=== PATIENT | female | born 1945 | race Caucasian/White ===

== ENCOUNTER → 2017-07-17 | Outpatient (CLI) | payer OTHER | LOC: FIMAGING 13:52 | PROVIDERS: ATTEND Family Medicine | DX: Z12.31 Encounter for screening mammogram for malignant neoplasm of breast (principal) | CPT/HCPCS: G0202 ==

== ENCOUNTER 2017-12-15 18:19 | Inpatient (IN) | payer OTHER ==
--- NOTE | 2017-12-15 18:58 | EDPHY ---
H & P Time Seen by Provider: 12/15/17 18:57 HPI/ROS: Chief complaint. Fever, chills HPI. 72-year-old female chest cold for 2 weeks after returning from a cruise to the [facility]. She saw her PCP and was diagnosis a cold. She was getting better. Last night's however she has had fever and chills. Fever to 101.9 degrees this morning. Nonproductive cough. Chills but not really and he. Some discomfort in the right side of her abdomen which is had previously before she has been sick. No nausea vomiting or diarrhea. Decreased oral intake. No urinary symptoms other than she has urinary incontinence with cough. ROS Constitutional. Fever and chills Eyes. no problems with vision ENT. Congestion Cardiovascular. no chest pain Respiratory. Cough and maybe a little shortness of breath Abdominal. Right-sided abdominal pain without nausea vomiting diarrhea . no problems urinating MS. no calf pain/swelling, no neck/back pain, no joint pain Skin. no rash Lymph. no swollen glands Neuro. no headache, no dizziness, no difficulty walking or with speech Past Medical/Surgical History: Past medical history is significant for knee replacements Social History: , nonsmoker, no alcohol Smoking Status: Former smoker Physical Exam: General Appearance: Alert well-developed female moderate distress. Ill appearing. Temp 37.2 degrees, heart rate 117 Eyes: Pupils equal and round no pallor or injection. ENT, mucous membranes are dry Respiratory: There are no retractions, lungs are clear to auscultation. Cardiovascular: Regular rate and rhythm. Gastrointestinal: Mild right-sided abdominal pain without masses. Normal bowel sounds Neurological: Awake and alert, sensory and motor exams grossly normal. Skin: Warm and dry, no rashes. Musculoskeletal: Neck is supple nontender. Extremities symmetrical, full range of motion. Psychiatric: Patient is oriented X 3, there is no agitation. Constitutional: Initial Vital Signs Temperature (C) 37.2 C 12/15/17 18:32 Heart Rate 117 H 12/15/17 18:32 Respiratory Rate 20 12/15/17 18:32 Blood Pressure 185/80 H 12/15/17 18:32 O2 Sat (%) 95 12/15/17 18:32 O2 Delivery Mode Room Air Allergies/Adverse Reactions: No Known Allergies Allergy (Verified 12/15/17 18:31) Home Medications: Medication Instructions Recorded Calcium Carbonate/Vitamin D3 1 each PO BID 11/23/15 [CALCIUM 600 + VIT D TABLET] Multivitamins [Multivitamin (*)] 1 each PO DAILY 11/23/15 Medical Decision Making - Diagnostics Imaging Results: Imaging Impressions Chest X-Ray 12/15/17 19:09 Impression: Findings consistent with airways disease are noted. Superimposed interstitial prominence bilaterally could reflect viral pneumonia or possibly pneumonia related to an atypical organism. Clinical correlation and follow-up radiography recommended. Chest x-ray reviewed by me and discussed with Dr. Mendoza suspicious for pneumonia versus viral pneumonia. Procedures: IV normal saline with target of 2 L. Tylenol for fever. Septic workup. ED Course/Re-evaluation: 8:15 p.m. Severe sepsis declared now. Patient is given fluid bolus. She has been cultured. IV Rocephin. Negative influenza. Patient is given IV Rocephin following cultures. On re-evaluation patient is stable. She, her , and I discussed imaging and lab results. We discussed treatment plan including recommendation for admission. They expressed understanding and agreement I consulted and discussed the case with , hospitalist, who agrees to the admission Differential Diagnosis: I considered influenza, pneumonia. Patient is significantly dehydrated. She has an elevated lactate which may represent dehydration as opposed to sepsis. However we have declared severe sepsis as the patient has an abnormal chest x- ray and clinically could have pneumonia. - Data Points Laboratory Results: Laboratory Results 12/15/17 18:55 12/15/17 18:55 12/15/17 12/15/17 12/15/17 20:33 19:10 19:05 WBC RBC Hgb Hct MCV MCH MCHC RDW Plt Count MPV Neut % (Auto) Lymph % (Auto) Heard % (Auto) Eos % (Auto) Baso % (Auto) Nucleat RBC Rel Count Absolute Neuts (auto) Absolute Lymphs (auto) Absolute Monos (auto) Absolute Eos (auto) Absolute Basos (auto) Absolute Nucleated RBC Immature Gran % Immature Gran # PT INR APTT VBG Lactic Acid Pending 2.9 mmol/L H mmol/L (0.7-2.1) Sodium Potassium Chloride Carbon Dioxide Anion Gap BUN Creatinine Estimated GFR Glucose Calcium Total Bilirubin Nasal Influenza A PCR NEGATIVE FOR FLU A (NEGATIVE) Nasal Influenza B PCR NEGATIVE FOR FLU B (NEGATIVE) 12/15/17 12/15/1712/15/18 18:55 18:55 18:55 WBC 11.95 10^3/uL H 10^3/uL (3.80-9.50) RBC 4.63 10^6/uL 10^6/uL (4.18-5.33) Hgb 14.3 g/dL g/dL (12.6-16.3) Hct 41.7 % % (38.0-47.0) MCV 90.1 fL fL (81.5-99.8) MCH 30.9 pg pg (27.9-34.1) MCHC 34.3 g/dL g/dL (32.4-36.7) RDW 12.2 % % (11.5-15.2) Plt Count 180 10^3/uL 10^3/uL (150-400) MPV 9.5 fL fL (8.7-11.7) Neut % (Auto) 88.0 % H % (39.3-74.2) Lymph % (Auto) 8.3 % L % (15.0-45.0) Heard % (Auto) 2.7 % L % (4.5-13.0) Eos % (Auto) 0.2 % L % (0.6-7.6) Baso % (Auto) 0.3 % % (0.3-1.7) Nucleat RBC Rel Count 0.0 % % (0.0-0.2) Absolute Neuts (auto) 10.52 10^3/uL H 10^3/uL (1.70-6.50) Absolute Lymphs (auto) 0.99 10^3/uL L 10^3/uL (1.00-3.00) Absolute Monos (auto) 0.32 10^3/uL 10^3/uL (0.30-0.80) Absolute Eos (auto) 0.02 10^3/uL L 10^3/uL (0.03-0.40) Absolute Basos (auto) 0.04 10^3/uL 10^3/uL (0.02-0.10) Absolute Nucleated RBC 0.00 10^3/uL 10^3/uL (0-0.01) Immature Gran % 0.5 % % (0.0-1.1) Immature Gran # 0.06 10^3/uL 10^3/uL (0.00-0.10) PT 15.5 SEC H SEC (12.0-15.0) INR 1.21 H (0.83-1.16) APTT 33.8 SEC SEC (23.0-38.0) VBG Lactic Acid Sodium 134 mEq/L L mEq/L (135-145) Potassium 4.1 mEq/L mEq/L (3.5-5.2) Chloride 99 mEq/L mEq/L (97-110) Carbon Dioxide 19 mEq/l L mEq/l (22-31) Anion Gap 16 mEq/L mEq/L (8-16) BUN 14 mg/dL mg/dL (7-23) Creatinine 0.7 mg/dL mg/dL (0.6-1.0) Estimated GFR > 60 Glucose 268 mg/dL H mg/dL (70-100) Calcium 8.9 mg/dL mg/dL (8.5-10.4) Total Bilirubin 1.5 mg/dL H mg/dL (0.1-1.4) Nasal Influenza A PCR Nasal Influenza B PCR Medications Given: Ceftriaxone Sodium/Dextrose (Rocephin 1 Gm (Premix)) 50 mls @ 100 mls/hr IV EDNOW ONE PRN Reason: Protocol Stop: 12/15/17 20:44 Last Admin: 12/15/17 20:28 Dose: 50 mls Sodium Chloride (Ns) 2,200 mls @ 4,400 mls/hr 30 ml/kg infuse over 30 min ( 2200 ml) IV EDNOW ONE PRN Reason: Protocol Stop: 12/15/17 20:44 Last Admin: 12/15/17 20:29 Dose: 2,200 mls Discontinued Medications Acetaminophen (Tylenol) 1,000 mg PO EDNOW ONE Stop: 12/15/17 19:10 Last Admin: 12/15/17 19:35 Dose: 1,000 mg Sodium Chloride (Ns) 1,000 mls @ 0 mls/hr IV ONCE ONE PRN Reason: Wide Open Stop: 12/15/17 19:52 Last Admin: 12/15/17 19:51 Dose: 1,000 mls Departure - Departure Disposition: [facility] Acute Clinical Impression: Pneumonia Qualifiers: Pneumonia type: due to unspecified organism Laterality: bilateral Lung location : lower lobe of lung Qualified Code(s): J18.1 - Lobar pneumonia, unspecified organism Condition: Fair
[2017-12-15] MEDS ORDERED: ACETAMINOPHEN 500 MG TAB PO ONE (19:09)
[2017-12-15 19:25] LABS: INR 1.21 (0.83-1.16); PROTIME(PATIENT) 15.5 SEC (12.0-15.0)
[2017-12-15 19:30] LABS: PLATELET COUNT 180 10^3/uL (150-400)
[2017-12-15] MEDS ORDERED: NS 1,000 ML IV ONE (19:51)
[2017-12-15] MEDS ORDERED: NS 2,200 ML IV ONE (20:15)
[2017-12-15] MEDS ORDERED: ONDANSETRON 4 MG/2 ML VIAL IVP PRN (22:22)
[2017-12-15] MEDS ORDERED: ONDANSETRON DISINTEGRATING 4 MG TAB PO PRN (22:22)
[2017-12-15] MEDS ORDERED: ALBUTEROL 3 ML DEYVIAL IH PRN (22:22)
[2017-12-15] MEDS ORDERED: AZITHROMYCIN 250 MG TAB PO ONE (23:02)
--- NOTE | 2017-12-15 23:38 | PDGENHP ---
History and Physical - Chief Complaint Fever - History of Present Illness 72 yo F w/ no significant PMhx presents with cough and fever. She first noticed viral URI symptoms (cough, sore throat, subjective fevers) about 2 weeks ago. This improved about 1 week later. However, 3 days ago, cough and fever returned with greater severity. She is clearly diaphoretic and warm to the touch on my evaluation although she is denying SOB or respiratory distress. CXR in the ED notable for viral vs atypical pneumonia. History Information - Allergies/Home Medication List Allergies/Adverse Reactions: No Known Allergies Allergy (Verified 12/15/17 18:31) Home Medications: Calcium Carbonate/Vitamin D3 [CALCIUM 600 + VIT D TABLET] 1 each PO BID [Last Taken 12/14/17] Multivitamins [Multivitamin (*)] 1 each PO DAILY 11/23/15 [Last Taken 12/14/17] Carboxymethylcellulose 1% [Refresh Celluvisc (*)] 1 uzair EACHEYE Q4 PRN 12/15/17 [Last Taken Unknown] I have personally reviewed and updated: family history, medical history - Past Medical History no pertinent PMH - Family History Positive for: diabetes type II - Social History Smoking Status: Former smoker Review of Systems Review of Systems: ROS: 10pt was reviewed & negative except for what was stated in HPI & below Physical Exam Physical Exam: Temp Pulse Resp BP Pulse Ox 36.8 C 80 16 103/54 L 92 12/15/17 23:16 12/15/17 23:16 12/15/17 23:16 12/15/17 23:16 12/15/17 23:16 Constitutional: not in pain, other (Diaphoretic, warm to the touch) Eyes: PERRL, EOMI Ears, Nose, Mouth, Throat: moist mucous membranes, no oral mucosal ulcers Cardiovascular: regular rate and rhythym, no murmur, rub, or gallop Respiratory: no respiratory distress, clear to auscultation Gastrointestinal: normoactive bowel sounds, soft, non-tender abdomen Skin: warm, normal color Musculoskeletal: full muscle strength, no muscle tenderness Neurologic: AAOx3, CN II-XII Intact Psychiatric: interacting appropriately, not anxious Lab Data & Imaging Review 12/15/17 18:55 12/15/17 18:55 WBC 11.95 10^3/uL (3.80-9.50) H 18 18:55 RBC 4.63 10^6/uL (4.18-5.33) 12/15/17 18:55 Hgb 14.3 g/dL (12.6-16.3) 18 18:55 Hct 41.7 % (38.0-47.0) 12/15/17 18:55 MCV 90.1 fL (81.5-99.8) 12/15/17 18:55 MCH 30.9 pg (27.9-34.1) 12/15/17 18:55 MCHC 34.3 g/dL (32.4-36.7) 12/15/17 18:55 RDW 12.2 % (11.5-15.2) 12/15/17 18:55 Plt Count 180 10^3/uL (150-400) 12/15/17 18:55 MPV 9.5 fL (8.7-11.7) 12/15/17 18:55 Neut % (Auto) 88.0 % (39.3-74.2) H 12/15/17 18:55 Lymph % (Auto) 8.3 % (15.0-45.0) L 12/15/17 18:55 Harlan % (Auto) 2.7 % (4.5-13.0) L 12/15/17 18:55 Eos % (Auto) 0.2 % (0.6-7.6) L 12/15/17 18:55 Baso % (Auto) 0.3 % (0.3-1.7) 12/15/17 18:55 Nucleat RBC Rel Count 0.0 % (0.0-0.2) 12/15/17 18:55 Absolute Neuts (auto) 10.52 10^3/uL (1.70-6.50) H 12/15/17 18:55 Absolute Lymphs (auto) 0.99 10^3/uL (1.00-3.00) L 12/15/17 18:55 Absolute Monos (auto) 0.32 10^3/uL (0.30-0.80) 12/15/17 18:55 Absolute Eos (auto) 0.02 10^3/uL (0.03-0.40) L 12/15/17 18:55 Absolute Basos (auto) 0.04 10^3/uL (0.02-0.10) 12/15/17 18:55 Absolute Nucleated RBC 0.00 10^3/uL (0-0.01) 12/15/17 18:55 Immature Gran % 0.5 % (0.0-1.1) 12/15/17 18:55 Immature Gran # 0.06 10^3/uL (0.00-0.10) 12/15/17 18:55 PT 15.5 SEC (12.0-15.0) H 12/15/17 18:55 INR 1.21 (0.83-1.16) H 12/15/17 18:55 APTT 33.8 SEC (23.0-38.0) 12/15/17 18:55 VBG Lactic Acid 1.5 mmol/L (0.7-2.1) 12/15/17 20:33 Sodium 134 mEq/L (135-145) L 12/15/17 18:55 Potassium 4.1 mEq/L (3.5-5.2) 12/15/17 18:55 Chloride 99 mEq/L (97-110) 12/15/17 18:55 Carbon Dioxide 19 mEq/l (22-31) L 12/15/17 18:55 Anion Gap 16 mEq/L (8-16) 12/15/17 18:55 BUN 14 mg/dL (7-23) 12/15/17 18:55 Creatinine 0.7 mg/dL (0.6-1.0) 12/15/17 18:55 Estimated GFR > 60 12/15/17 18:55 Glucose 268 mg/dL (70-100) H 12/15/17 18:55 Calcium 8.9 mg/dL (8.5-10.4) 12/15/17 18:55 Total Bilirubin 1.5 mg/dL (0.1-1.4) H 12/15/17 18:55 Urine Color YELLOW 12/15/17 23:05 Urine Appearance MODERATELY TURBID 12/15/17 23:05 Urine pH 5.0 (5.0-7.5) 12/15/17 23:05 Ur Specific [place] 1.011 (1.002-1.030) 12/15/17 23:05 Urine Protein 1+ (NEGATIVE) H 12/15/17 23:05 Urine Ketones TRACE (NEGATIVE) H 12/15/17 23:05 Urine Blood 2+ (NEGATIVE) H 12/15/17 23:05 Urine Nitrate POSITIVE (NEGATIVE) H 12/15/17 23:05 Urine Bilirubin NEGATIVE (NEGATIVE) 12/15/17 23:05 Urine Urobilinogen NEGATIVE EU (0.2-1.0) 12/15/17 23:05 Ur Leukocyte Esterase 3+ (NEGATIVE) H 12/15/17 23:05 Urine RBC 1-3 /hpf (0-3) 12/15/17 23:05 Urine WBC 50-182 /hpf (0-3) H 12/15/17 23:05 Ur Epithelial Cells NONE SEEN /lpf (NONE-1+) 12/15/17 23:05 Urine Bacteria TRACE /hpf (NONE SEEN) H 12/15/17 23:05 Urine Mucus TRACE /lpf (NONE-1+) 12/15/17 23:05 Urine Glucose 3+ (NEGATIVE) H 12/15/17 23:05 Nasal Influenza A PCR NEGATIVE FOR FLU A (NEGATIVE) 12/15/17 19:10 Nasal Influenza B PCR NEGATIVE FOR FLU B (NEGATIVE) 12/15/17 19:10 Imaging Review: Imaging Impressions Chest X-Ray 12/15/17 19:09 Impression: Findings consistent with airways disease are noted. Superimposed interstitial prominence bilaterally could reflect viral pneumonia or possibly pneumonia related to an atypical organism. Clinical correlation and follow-up radiography recommended. Visualized and Interpreted Chest x-ray results: Yes Chest X-Ray results: infiltrate (Diffuse, c/w viral vs atypical org) Assessment & Plan Assessment: 72 yo F w/ no significant PMHx presents w/ pneumonia. Plan: 1. Pneumonia - Suspected based on history of cough and fever. History of initial URI symptoms that were improving, then with acute worsening, are possibly suggestive of bacterial super-infection. CXR suspicious for viral vs. atypical etiology. She is oxygenating well on RA and not in respiratory distress. - Respiratory PCR, procalcitonin, blood cultures - CTX/Azithro for CAP coverage 2. Asymptomatic Pyuria - Patient with infectious UA (3+ LE, +nitrate, >50 WBCs) but denies symptoms. It is possible that fever is due to UTI as well. - Ceftriaxone as above - Urine culture ordered 3. Hyperglycemia - No prior hx of DM but she does report family hx. - Will monitor BG and check A1c, start insulin if persistently elevated Diet - Regular Code - Full Ppx - LMWH Dispo - Admit under observation status
[2017-12-16 05:13] LABS: PLATELET COUNT 164 10^3/uL (150-400)
[2017-12-16] MEDS ORDERED: CARBOXYMETHYLCELLULOSE 1% 0.4 ML DROPERETTE EACHEYE PRN (07:35)
[2017-12-16] MEDS: CALCIUM CARB W/VIT D 500 MG TAB PO SCH ×2 (08:11→21:07)
[2017-12-16] MEDS: ENOXAPARIN 40 MG/0.4 ML SYR SC SCH (08:11)
[2017-12-16] MEDS: MULTIVITAMINS 1 EACH TAB PO SCH (08:11)
--- NOTE | 2017-12-16 12:48 | HOSPPROG ---
Hospitalist Progress Note Assessment/Plan: Patient is a 72-year-old female who presented to the emergency room with cough and fever. Today is my 1st encounter with the patient. Chart reviewed. Reviewed her care with Dr. Askew with Infectious Disease. She will see the patient today. Impression: Findings consistent with airways disease are noted. Superimposed interstitial prominence bilaterally could reflect viral pneumonia or possibly pneumonia related to an atypical organism. Clinical correlation and follow-up radiography recommended. *Bacteremia, E coli -most likely consistent with a urine source -have asked Infectious Disease to get involved with her care * upper respiratory infection, likely a viral pneumonia -procalcitonin elevated * hyperglycemia -newly diagnosed diabetes -hemoglobin A1c is elevated at 7.2 -will place her on a sliding scale and coverage -she is aware of this -will ask dietary to see * plan. She will require another midnight stay due to being bacteremic and needing diabetes treatment and education Subjective: Pat said she has been feeling poorly for days. Objective: Vital Signs Temp Pulse Resp BP Pulse Ox 36.7 C 87 18 118/60 91 L 12/16/17 11:15 12/16/17 11:15 12/16/17 11:15 12/16/17 11:15 12/16/17 11:15 Microbiology 12/15/17 23:05 Respiratory Panel (PCR) - Final Nasal, Sinus - Anaerobic Tube/Swab No Organism Detected Laboratory Results 12/16/17 04:33 12/16/17 04:33 12/15/17 12/16/17 12/17/17 05:59 05:59 05:59 Intake Total 400 Output Total 900 1200 Balance -500 -1200 PT 15.5 SEC (12.0-15.0) H 12/15/17 18:55 INR 1.21 (0.83-1.16) H 12/15/17 18:55 - Physical Exam Constitutional: appears nourished, not in pain, chronically ill appearing Eyes: PERRL Ears, Nose, Mouth, Throat: hearing normal Cardiovascular: regular rate and rhythym Respiratory: no respiratory distress Gastrointestinal: normoactive bowel sounds, tenderness (slight in ruq area) Skin: warm Musculoskeletal: generalized weakness Neurologic: AAOx3 Psychiatric: interacting appropriately ICD10 Worksheet Patient Problems: Problems Problem Status Onset Pneumonia Acute Primary localized osteoarthritis of right knee Acute
[2017-12-16] MEDS ORDERED: D50W 25 GM/50 ML SYR IVP PRN (13:26)
[2017-12-16] MEDS: ACETAMINOPHEN 325 MG TAB PO PRN ×2 (15:40→23:46)
--- NOTE | 2017-12-16 15:41 | GCON ---
[f rep st] CONSULTATION INFECTIOUS DISEASE CONSULTATION DATE OF CONSULTATION: 12/16/2017 REASON FOR CONSULTATION: Bacteremia. CHIEF COMPLAINT: Fevers. HISTORY OF PRESENT ILLNESS: This is a 72-year-old female with a past medical history significant for dyslipidemia, prediabetes, who came in after developing fevers and chills the past 4 days. She states that 2 weeks ago, she had just returned from a cruise and she started having chest congestion and dry cough. She states that after a few days, she went to see her primary care doctor who did a flu test and that was negative. She continued to have a dry cough, but that had continued to improve over the past 1 week. She has denied shortness of breath or sputum production. Four days ago, she developed fevers and shaking chills. She has also had some intermittent right upper quadrant pain. She states that her appetite has decreased over the past 4 days as well. She denies any diarrhea or vomiting or nausea. She denies any burning with urination. She states that she has had some increase in urinary frequency over the past couple days, but she has also taken in more fluids since she has had fevers. She denies any other complaints at this time. She has a temperature 37.6 at present. She was tachycardic with a pulse of 117. Blood pressure was elevated at 185/80 on admission, and she had a leukocytosis. Blood cultures x2 sets were drawn in 4out of 4 bottles are growing out gram-negative hari with a preliminary identification of E coli. Sensitivities are pending. She had a urinalysis done which showed positive nitrites, 3+ leukocyte esterases, 50 to 182 WBCs, no epithelial cells with trace bacteria. Cultures are pending. She was given a dose of Rocephin and azithromycin in the ER yesterday and is currently on Rocephin, azithromycin, and Flagyl. Today, she feels about the same as yesterday. She does not currently have right upper quadrant pain at present but states that has been an issue intermittently over the past several months. Chest x-ray done on admission shows some interstitial changes bilaterally with no fannie consolidation. REVIEW OF SYSTEMS: GENERAL: Fevers and shaking chills. HEAD: No headaches. EYES : No change in vision. ENT: No sore throat, difficulty swallowing, ear pain or ear drainage. CARDIOVASCULAR: No chest pain or rapid heartbeat. RESPIRATORY: Denies any shortness of breath or sputum production. She has a dry cough which she states is improving over the past 1 week. ABDOMEN: No nausea, vomiting, diarrhea, or fannie abdominal pain at present. She has had intermittent right upper quadrant pain for some time. : No dysuria or hematuria. She has had some mild increased urinary frequency over the last 4 days. See above. MUSCULOSKELETAL: Denies any joint pains or muscle aches. SKIN: No rashes. ENDOCRINE: No weight loss. The rest of a 10-point review of systems essentially negative except for above. PAST MEDICAL HISTORY: Significant for prediabetes, dyslipidemia. PAST SURGICAL HISTORY: Significant for right total knee replacement. ALLERGIES: No known drug allergies. SOCIAL HISTORY: She is a nonsmoker. Drinks alcohol occasionally. She lives with her . Recently went on a [employer] cruise 2 weeks ago. She had developed a couple of what she says are bites on her chest during that time, which have scabbed over. FAMILY HISTORY: Significant for diabetes in her father and her brother. Her mother of cancer. MEDICATIONS: As per NOV. PHYSICAL EXAMINATION: VITAL SIGNS: Temperature current 37.6, pulse is 102, blood pressure 124/63, saturations are 91% on room air, respiratory rate is 20. GENERAL: Patient is resting in bed. No acute respiratory distress. Awake, alert, and oriented x3. HEENT: Head is normocephalic, atraumatic. Eyes without conjunctival injection or petechiae. Oropharynx is clear. No erythema or thrush. CARDIOVASCULAR: S1, S2. Regular rate and rhythm. No murmurs appreciated. RESPIRATORY: Clear to auscultate bilaterally. No rhonchi appreciated. ABDOMEN: Positive bowel sounds in all 4 quadrants. Soft, nontender , nondistended. Negative Ward's sign. BACK: No CVA tenderness. LOWER ABDOMEN: No suprapubic tenderness. MUSCULOSKELETAL: No pain on palpation of muscles or joints. No obvious joint effusions. SKIN: No obvious rashes. LABORATORY DATA: White blood cell count is 12.4, hemoglobin 13.6, platelets are 164, neutrophil count is 86%, sodium is 139, potassium 4.4, chloride is 108 , bicarb is 20, BUN is 12, creatinine 0.6. Last LFTs noted on the system was in 08/2017 where she had an AST of 41, ALT of 68, alkaline phosphatase of 129, and a total bilirubin of 1.0. She had a total bilirubin done yesterday which was 1.5. Procalcitonin 2.1. Urinalysis as stated above. Nasal swab was negative for influenza A and B PCR. Blood cultures as stated above. Respiratory panel was negative. Urine cultures are pending. Chest x-ray as stated above. ASSESSMENT: 1. Escherichia coli bacteremia. 2. Pyuria, rule out urinary tract infection. 3. Intermittent right upper quadrant pain. Evaluate further. PLAN: Currently with E. coli preliminary identified on the blood cultures. Sensitivities are pending. We will continue with ceftriaxone monotherapy for now and adjust if needed based on updated culture results.. Would discontinue azithromycin and Flagyl. Source may be urinary but mild urinary symptoms. Has had right upper quadrant pain intermittently for some time now. Will check LFTs and an abdominal ultrasound to start with and she may need a CT scan if further evaluation is necessary. Repeat labs in the morning to follow progress of therapy. Plan of care was discussed at length with the patient. Thank you very much for providing this opportunity to care for your patient in consultation. /[id number]/MODL MTDD
--- NOTE | 2017-12-16 15:43 | PDMN ---
Medical Necessity Medical necessity: bacteremia, e coli, URI-poss viral pna vs. atypical organism pna., , hyperglycemia, newly Dg diabetes, further eval, monitoring and tx needed > 2 midnights. ID consult pending
--- NOTE | 2017-12-16 17:28 | ASMTCMCOM ---
CM Note CM Note Notes: Pt admitted with bacteremia, E coli & suspected pneumonia. ID to consult. Spoke with RN; pt has a & daughter that lives locally. Anticpate dc home with support of family when medically stable. CM will follow if needs/changes. Date Signed: 12/16/2017 05:27 PM Electronically Signed By:Lois Hansen RN
[2017-12-16] MEDS: INSULIN LISPRO 100 UNIT/ML SC SCH (17:43)
[2017-12-16] MEDS ORDERED: AZITHROMYCIN 250 MG TAB PO SCH (21:00)
[2017-12-17 05:34] LABS: PLATELET COUNT 170 10^3/uL (150-400)
[2017-12-17] MEDS: INSULIN LISPRO 100 UNIT/ML SC SCH ×3 (08:48→18:22)
[2017-12-17] MEDS: MULTIVITAMINS 1 EACH TAB PO SCH (08:49)
[2017-12-17] MEDS: ENOXAPARIN 40 MG/0.4 ML SYR SC SCH (08:49)
[2017-12-17] MEDS: CALCIUM CARB W/VIT D 500 MG TAB PO SCH ×2 (08:49→20:44)
[2017-12-17] MEDS: INSULIN GLARGINE 100 UNITS/ML UNIT SC SCH (09:47)
--- NOTE | 2017-12-17 13:45 | HOSPPROG ---
Hospitalist Progress Note Assessment/Plan: Patient is a 72-year-old female who presented to the emergency room with cough and fever. *Bacteremia, E coli -most likely consistent with a urine source -Ceftriaxone -feeling much improved * upper respiratory infection, likely a viral pneumonia -procalcitonin elevated * hyperglycemia -newly diagnosed diabetes -hemoglobin A1c is elevated at 7.2 -added low dose Lantus and sliding scale -appreciate dietary involvement * plan.Likely will be dc in the next few days on a quinolone. She is still feeling tired but better. Subjective: Pat is feeling much better better today, but is tired. Objective: Vital Signs Temp Pulse Resp BP Pulse Ox 36.9 C 90 18 131/68 H 90 L 12/17/17 11:45 12/17/17 11:45 12/17/17 11:45 12/17/17 11:45 12/17/17 11:45 Laboratory Results 12/17/17 04:36 12/17/17 04:36 12/16/17 12/17/17 12/18/17 05:59 05:59 05:59 Intake Total 300 Output Total 200 Balance 100 PT 15.5 SEC (12.0-15.0) H 12/15/17 18:55 INR 1.21 (0.83-1.16) H 12/15/17 18:55 - Physical Exam Constitutional: no apparent distress, not in pain Eyes: PERRL Ears, Nose, Mouth, Throat: hearing normal Cardiovascular: regular rate and rhythym Respiratory: no respiratory distress Gastrointestinal: normoactive bowel sounds Skin: warm Musculoskeletal: generalized weakness Neurologic: AAOx3 Psychiatric: interacting appropriately ICD10 Worksheet Patient Problems: Problems Problem Status Onset Pneumonia Acute Primary localized osteoarthritis of right knee Acute
--- NOTE | 2017-12-17 14:24 | PCMIDPN ---
Assessment/Plan: Assessment: E coli bacteremia secondary to likely right-sided pyelonephritis and unrecognized ascending urinary tract infection. Patient states she had a 2 week history of fatigue and right flank ache prior to her presentation with acute fever and rigors. Will continue the IV ceftriaxone as a sensitivity panel shows that this is a correct choice of antibiotic. Once the patient is clinically further improved we have the option of switching over to oral fluoroquinolones for discharge. Plan: 1. Continue IV ceftriaxone. 2. Follow clinical course. Do not repeat blood cultures given gram-negative hari recommendations currently. 12/17/17 15:34 Subjective: Patient is resting in her hospital bed. She denies any fevers or chills. States that she feels extraordinarily weak and tired. Her appetite is still poor. Energy level is very poor. No more rigors. Objective: Ceftriaxone # 2 Vital Signs Temp Pulse Resp BP Pulse Ox 36.9 C 90 18 131/68 H 90 L 12/17/17 11:45 12/17/17 11:45 12/17/17 11:45 12/17/17 11:45 12/17/17 11:45 Laboratory Results 12/17/17 04:36 12/17/17 04:36 12/16/17 12/17/17 12/18/17 05:59 05:59 05:59 Intake Total 300 Output Total 200 Balance 100 - Physical Exam General Appearance: WD/WN, alert, no apparent distress, non-toxic Respiratory: lungs clear, normal breath sounds, No respiratory distress Cardiac/Chest: regular rate, rhythm, No tachycardia Extremities: non-tender, normal inspection Skin: normal color, warm/dry, No rash Neuro/Psych: alert, normal mood/affect, oriented x 3 ICD10 Worksheet Patient Problems: Problems Problem Status Onset Pneumonia Acute Primary localized osteoarthritis of right knee Acute
[2017-12-17 15:41] VITALS: RESP 16
[2017-12-18] MEDS: INSULIN LISPRO 100 UNIT/ML SC SCH (07:35)
[2017-12-18] MEDS: ENOXAPARIN 40 MG/0.4 ML SYR SC SCH (09:47)
[2017-12-18] MEDS: CALCIUM CARB W/VIT D 500 MG TAB PO SCH (09:47)
[2017-12-18] MEDS: MULTIVITAMINS 1 EACH TAB PO SCH (09:47)
[2017-12-18] MEDS: INSULIN GLARGINE 100 UNITS/ML UNIT SC SCH (09:47)
[2017-12-18 11:11] VITALS: BP 113/76; PULSE 82; TEMP 99.1; O2SAT 91
--- NOTE | 2017-12-18 11:26 | GDS ---
[f rep st] DISCHARGE SUMMARY DISCHARGE DIAGNOSES: 1. A 3.5 cm aortic aneurysm. 2. Escherichia coli bacteremia from urinary source. 3. Viral upper respiratory infection. 4. Newly diagnosed diabetes mellitus with A1c of 7.2. CONSULTANTS: Dr. Armando Wilcox infectious Disease. HOSPITAL COURSE BY PROBLEM: 1. Fever due to E coli bacteremia: The patient presented to the hospital with a fever, and was subs equently found to have E coli bacteremia. She was started on ceftriaxone. Blood and urine cultures were done, which confirmed E coli bacteremia. The E coli is sensitive to fluoroquinolones. Day of d ischarge, the patient is feeling much better. I discussed the case with Dr. Wilcox from Infectious [facility], who thought it was reasonable for her to be discharged to complete a 7-day course of ciproflo xacin 500 mg p.o. twice daily. 2. Newly diagnosed diabetes mellitus: The patient was found to have some hyperglycemia while in the hospital. Hemoglobin A1c was done that was elevated at 7.2. She was started on low-dose glargine w hile in the hospital, 5 units at bedtime. On discharge, I will not send her out on any diabetes medi cations. Since her A1c is only mildly elevated. She should follow up with her primary care provider in the next few days to discuss this new diagnosis and treatment strategies. PHYSICAL EXAM: VITAL SIGNS: On day of discharge, blood pressure 127/72, pulse of 75, respiratory ra te 16, O2 saturation 90% on room air, temperature afebrile. GENERAL: No acute distress. HEART: S1 , S2. LUNGS: Clear. ABDOMEN: Soft, nontender, nondistended. No guarding or rebound tenderness. LABORATORY DATA: Studies done this hospital stay: Abdominal ultrasound done 12/16/2017 showed mild hepatomegaly with fatty infiltration. There is mild infrarenal abdominal aortic aneurysm measuring 3 .5 cm. DISCHARGE MEDICATIONS: Please refer to discharge medication reconciliation in [facility] for details. Below is a preliminary list. New medications on hospital discharge: Ciprofloxacin 500 mg p.o. twice daily for 7 days. All other home medications were continued at her usual home dosages. DISCHARGE INSTRUCTIONS: The patient will be discharged from the hospital, where she should seek outp atient followup with her primary care provider regarding treatment of her diabetes. She should also have further monitoring of the aneurysm as indicated. /[id number]/MODL
[2017-12-18] MEDS: ACETAMINOPHEN 325 MG TAB PO PRN (11:54)
--- NOTE | 2017-12-18 11:58 | ASMTLACE ---
LACE Length of stay for Answers: 2 days current admission Acuity / Level of Answers: Yes Care: Did the patient have an inpatient admission? Comorbidities - select Answers: Other Notes: GERD all that apply # of Emergency department Answers: 1-2 visits in the last 6 months Score: 7 Date Signed: 12/18/2017 11:58 AM Electronically Signed By:Jenifer Kinney RN
== END 2017-12-18 12:20 | disposition home or self-care (01) | DRG 690 ==
LOC: INTOOBSV 20:42 → F3E 21:25 → OBSVTOIN 12-16 15:01
PROVIDERS: ADMIT Internal Medicine; ATTEND Internal Medicine
DX: N39.0 Urinary tract infection, site not specified (principal); R78.81 Bacteremia; B96.20 Unspecified Escherichia coli [E. coli] as the cause of diseases classified elsewhere; I71.4 Abdominal aortic aneurysm, without rupture; E11.9 Type 2 diabetes mellitus without complications; J06.9 Acute upper respiratory infection, unspecified; E78.5 Hyperlipidemia, unspecified
CPT/HCPCS: 96365; G0378; J0696; J1650; J1815

== ENCOUNTER → 2018-11-09 | Outpatient (CLI) | payer OTHER | LOC: FIMAGING 12:10 | PROVIDERS: ATTEND Family Medicine | DX: Z12.31 Encounter for screening mammogram for malignant neoplasm of breast (principal); Z13.820 Encounter for screening for osteoporosis; Z78.0 Asymptomatic menopausal state; M81.0 Age-related osteoporosis without current pathological fracture ==